=== PATIENT | male | born 1965 | race Caucasian/White ===

== ENCOUNTER 2024-10-01 09:14 | Emergency (ER) | payer BC, SELFPAY ==
[2024-10-01 09:19] VITALS: BP 168/92
--- NOTE | 2024-10-01 10:09 | ED.GENMED ---
History of Present Illness
<Emile Murillo Jr., PA-C - Last Filed: 10/01/24 10:33>
General
Chief Complaint: Oral/Mouth Problem
Source: patient and spouse
Exam Limitations: none
Time Seen by Provider: 10/01/24 09:24
Nursing documentation reviewed up to this point in time: agreed with
History of Present Illness
History of Present Illness:
59-year-old male presenting to the emergency department today with concerns of bruising and discomfort to the left side of his tongue denies any trauma denies being on a blood thinner is unsure how this occurred denies any significant pain does have
some bruising surrounding the area. Denies any trouble swallowing or breathing
Past History
<CAROLYN Mendoza Jr. Last Filed: 10/01/24 10:33>
Past History
ED Past Medical History: Hypercholesterolemia
ED Past Surgical History: Other
Social History
Tobacco: Non-smoker
Living: with family
Review of Systems
<CAROLYN Mendoza Jr. Last Filed: 10/01/24 10:33>
Review of Systems
Allergies reviewed?: Yes
All Other Systems: ROS reviewed and negative except as documented in HPI and ROS
Phy Exam
<CAROLYN Mendoza Jr. Last Filed: 10/01/24 10:33>
Physical Exam
Physical Exam:
GENERAL: Alert , in no apparent distress
EYE: pupils equal and reactive
NECK: Supple, no significant adenopathy.
ENT: Mass to the left anterior portion of the tongue roughly 1 cm in diameter with surrounding ecchymosis only to left side of the tongue. o/p clr, mmm.
CARDIAC: Regular rate and rhythm .
LUNGS: Clear breath sounds bilaterally, no acute respiratory distress, no wheezes/rales/rhonchi
ABDOMEN: Soft, without focal tenderness, no r/g, no cvat
NEUROLOGICAL: Alert and oriented, no focal neuro deficits
SKIN: Warm and dry, skin intact.
MUSCULOSKELETAL: No edema, well perfused.
PSYCH: Normal and appropriate interaction.
Course
<Emile Murillo Jr., PA-C - Last Filed: 10/01/24 10:33>
Vital Signs
Initial and Last Documented VS:
Initial Vital Signs
Temp Pulse Resp BP Pulse Ox
98.4 F 56 18 168/92 98
10/01/24 09:19 10/01/24 09:19 10/01/24 09:19 10/01/24 09:19 10/01/24 09:19
Last Documented Vital Signs
Temp Pulse Resp BP Pulse Ox
98.4 F 56 18 168/92 98
10/01/24 09:19 10/01/24 09:19 10/01/24 09:19 10/01/24 09:19 10/01/24 09:19
<Jacob Monahan DO - Last Filed: 10/01/24 10:14>
Vital Signs
Initial and Last Documented VS:
Initial Vital Signs
Temp Pulse Resp BP Pulse Ox
98.4 F 56 18 168/92 98
10/01/24 09:19 10/01/24 09:19 10/01/24 09:19 10/01/24 09:19 10/01/24 09:19
Last Documented Vital Signs
Temp Pulse Resp BP Pulse Ox
98.4 F 56 18 168/92 98
10/01/24 09:19 10/01/24 09:19 10/01/24 09:19 10/01/24 09:19 10/01/24 09:19
<Emile Murillo Jr., PA-C - Last Filed: 10/01/24 10:33>
MDM/Problems Addressed
MDM/Problems Addressed:
59-year-old male presenting to the emergency department today with concerns of bruising and swelling to the left side of the tongue. Denies any specific preceding injury or additional symptoms. Appear to be consistent with potential hematoma with
surrounding ecchymosis though he denies any specific trauma to the area. Patient was sent to ENT that recommended outpatient follow-up for this. Otherwise patient generally well-appearing stable for outpatient management return precautions given
<Emile Murillo Jr., PA-C - Last Filed: 10/01/24 10:33>
*Critical Care Note
Total Time (30-74mins, 75-104mins- exclusive of procedures): Not Applicable
ED Attending Note
<Emile Murillo Jr., PA-C - Last Filed: 10/01/24 10:33>
-
Portions of this chart may have been created with voice recognition software.� Occasional wrong word or��sound alike� substitutions may have occurred due to the inherent limitations of voice recognition software.
<Jacob Monahan DO - Last Filed: 10/01/24 10:14>
ED Attending Note
Patient seen and examined by attending physician: Yes
I performed the substantive portion of visit, reviewed & personally made and approve the management plan that is documented in note by myself or DYLLAN.: Yes
ED Attending Note:
I have seen and evaluated the patient with a [id number] encounter. I have spoken to the advance practicer provider and involved in the medical history, the physical exam, medical decision making.
Evaluation and management service: agree unless noted differently below.
Results interpretation: agree unless noted differently below.
Focused HPI: 59-year-old male presenting for evaluation of bruising and irritation to his tongue. He denies tongue bite or seizure history
Physical exam: Bruising noted to left lateral tongue and left anterior tongue
Medical Decision Making: Picture was sent to ENT who agrees that this seems like a traumatic hematoma. ENT recommending outpatient follow-up if symptoms persist
Discharge Plan
Departure
Patient Disposition: Home (Routine Discharge)
Date of Disposition: 10/01/24
Time of Disposition: 10:29
Patient with high blood pressure during this ER visit?: No
Condition: Good
Covid-19: Not Applicable
Discharge Problem:
Lesion of tongue
Prescriptions:
No Action
docosahexaenoic acid-epa 1 CAP capsule
1 cap PO DAILY
coenzyme X20-ydfzbik E 1 CAP capsule
1 cap PO DAILY
atorvastatin 20 MG tablet
20 mg PO DAILY
aspirin 81 MG tablet,delayed release (DR/EC)
81 mg PO DAILY
cholecalciferol (vitamin D3) [Vitamin D3] 400 UNITS tablet
400 units PO DAILY
benzonatate 100 MG capsule
200 mg PO TIDPRN PRN (Reason: cough) 10 Days Qty: 30 0RF
codeine-guaifenesin [Guaiatussin AC] 10 ML liquid
5 ml PO Q8HPRN PRN (Reason: severe cough) 7 Days Qty: 105 0RF
dexamethasone 2 MG tablet
6 mg PO DAILY 5 Days Qty: 15 0RF
rivaroxaban [Xarelto] 10 MG tablet
10 mg PO DAILY 31 Days Qty: 31 0RF
Referrals:
Ricardo Kingsley DO [Family Provider] -
Jose Glaser MD [Active] - Follow up in 5-7 days
Activity Restrictions/Additional Instructions:
You came to the emergency department today with concerns of swelling and bruising to your tongue. Please help closely with ENT for reassessment of this within the next week or so. Return to the emergency department for any worsening, new or
concerning symptoms.
Interventions
Interventions:
*Risk Screen - Suicide Last Done: 10/01/24 09:19
*General Assessment Last Done: 10/01/24 09:19
*Neglect/Abuse Screening Last Done: 10/01/24 09:26
*ED COVID-19 Vaccine History Last Done: 10/01/24 09:19
Discharge Date and Time
Print Language: NICARAGU[place]
== END 2024-10-01 11:00 | disposition home or self-care (01) ==
LOC: EMR 09:14
PROVIDERS: EMERGENCY PHYSICIAN Student in an Organized Health Care Education/Training Program; FAMILY PHYSICIAN Family Medicine
DX: K13.79 Other lesions of oral mucosa (principal); R58 Hemorrhage, not elsewhere classified; E78.00 Pure hypercholesterolemia, unspecified; Z79.82 Long term (current) use of aspirin
CPT/HCPCS: 99282